=== PATIENT | male | born 2005 | race Caucasian/White ===

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

== ENCOUNTER 2024-05-26 17:59 | Emergency (ER) | payer BC, SELFPAY ==
[2024-05-26 18:11] VITALS: BP 124/73; PULSE 74; RESP 16; TEMP 36.9; O2SAT 100
--- NOTE | 2024-05-26 18:31 | ED.ABDPAIN ---
HPI - Abdominal Pain General Chief Complaint: Abdominal Pain Stated Complaint: Stomach Pain Time Seen by Provider: 05/26/24 18:32 Source: patient and RN notes reviewed Mode of arrival: ambulatory Limitations: no limitations History of Present Illness HPI narrative: 19 y/o male presented for c/o abdominal pain, nasal congestion, fatigue and generalized weakness today. States he started with mild upper abdominal pain yesterday, which has now moved to the lower mid abdomen. Says he slept 14 hours today, and arms feel heavy. Endorses mild nausea today, able to eat a [employer] burger today. LBM last night was 'hard to push but soft stool' and denies hematochezia or melena. Related Data Allergies Allergy/AdvReac Type Severity Reaction Status Date / Time amoxicillin Allergy Unknown Verified 05/26/24 18:15 Review of Systems Review of Systems: CONSTITUTIONAL: Denies body aches, fever, chills ENT: reports rhinorrhea, congestion CARDIOVASCULAR: Denies chest pain, palpitations, or edema. RESPIRATORY: Denies cough or dyspnea. GASTROINTESTINAL: Endorses abdominal pain, nausea, Denies vomiting, diarrhea, hematochezia, melena, hematemesis GENITOURINARY: Denies dysuria, hematuria, or CVA tenderness. SKIN: Denies rash, itching, or wounds. MUSCULOSKELETAL: Denies back pain, joint pain, or myalgia. NEUROLOGIC: Denies headache, numbness, tingling, or weakness. All systems reviewed & are unremarkable except as noted in HPI and below PMFSH Past Medical History Medical History Anxiety and depression Surgical History Surgical History Hundred teeth extracted Social History Social History Smoking status: Current every day smoker Tobacco type: e-cigarettes/vaping Alcohol intake: never Substance use: never Living arrangements: with family Gender identity (if verbalized by the patient): Male Comments At time of signature, I have reviewed and agree with nursing past medical, surgical, social and family history unless otherwise noted. Please see nursing chart for further information. There is no relevant family history pertinent to the presenting complaint Exam Narrative: GENERAL: Well-appearing, and in no acute distress. EYES: EOMI. Conjunctivae normal. ENT: Mucous membranes pink and moist. CHEST: No respiratory distress. Clear to auscultation. HEART: Regular rate and rhythm. No murmur appreciated. Normal peripheral pulses. ABDOMEN: abd soft, nondistended, normal active bowel sounds. Minimally tender abdomen to RLQ; No guarding, rebound tenderness, asymmetry SKIN: Warm, dry, no rash. Capillary refill normal. Normal skin turgor. NEURO: No focal deficits. Alert and oriented x3. Course Course Emergency Course: Patient is aware of diagnosis, understands and agrees to treatment plan. Anticipatory guidance given. Patient agrees to follow-up as directed and is aware of reasons to seek care at the emergency department. Portions of this record may have been created with voice recognition software Level of Care: Express Care Visit Vital Signs Vital signs: Vital Signs Temperature 98.5 F 05/26/24 18:11 Pulse Rate 74 05/26/24 18:11 Respiratory Rate 16 05/26/24 18:11 Blood Pressure 124/73 05/26/24 18:11 Pulse Oximetry 100 05/26/24 18:11 Oxygen Delivery Room Air 05/26/24 18:11 Temperature 98.5 F 05/26/24 18:11 Pulse Rate 74 05/26/24 18:11 Respiratory Rate 16 05/26/24 18:11 Blood Pressure 124/73 05/26/24 18:11 Pulse Oximetry 100 05/26/24 18:11 Oxygen Delivery Room Air 05/26/24 18:11 MDM - Abdominal Pain MDM Narrative Medical decision making narrative: neg strep. Discussed physical exam findings. declined er transfer for abdominal pain. Overall well appearing, vss, tolerating PO. Advised supportive
[2024-05-26 18:54] LABS: EDSTREPNEGPOS1 Negative (Negative)
== END 2024-05-26 19:15 | disposition home or self-care (01) ==
PROVIDERS: Emergency Provider Nurse Practitioner Family; PCP Pediatrics
DX: R10.9 Unspecified abdominal pain (principal); F17.290 Nicotine dependence, other tobacco product, uncomplicated
CPT/HCPCS: 87081; 87880; 99213; G0463